=== PATIENT | male | born 1980 | race Caucasian/White ===

== ENCOUNTER 2020-02-04 11:34 | Emergency (ER) | payer MEDICARE, MEDICAID ==
[~2020-02-04] VITALS: Ht 190.5 cm; Wt 81.8 kg
[~2020-02-04 11:34] MED LIST: ARIP5SOL2 PO; GABA600T PO; HYDR50CA9 PO; LACO200T2 PO; RISP3TAB35 PO; SIMV-46 PO; TOPI25CA PO; VENL75CA55 PO
[2020-02-04] MEDS ORDERED: LORazepam 2 MG TABLET PO ONE (12:30)
[2020-02-04 12:55] LABS: BASOPHILS % (AUTO) 1.1 % (0.0-2.0); EOSINOPHILS % (AUTO) 2.4 % (1.0-6.0); HEMATOCRIT 42.8 % (41-53); HEMOGLOBIN 14.2 g/dL (13.5-17.5); LYMPHOCYTES # (AUTO) 1.1 K/uL (1.0-4.8); LYMPHOCYTES % (AUTO) 14.7 % (22.0-44.0); MEAN CORPUSCULAR HEMOGLOBIN 31.5 pg (26.0-34.0); MEAN CORPUSCULAR HGB CONC 33.3 G/dL (31.0-37.0); MEAN CORPUSCULAR VOLUME 95 fL (80-100); MONOCYTES # (AUTO) 0.6 K/uL (0.1-1.0); MONOCYTES % (AUTO) 7.9 % (2.0-9.0); NEUTROPHILS # (AUTO) 5.5 K/uL (1.8-7.7); NEUTROPHILS % (AUTO) 73.9 % (40.0-70.0); PLATELET COUNT (AUTO) 288 K/uL (150-450); RED BLOOD CELL COUNT(AUTO) 4.53 MIL/uL (4.50-5.90); RED CELL DISTRIBUTION WIDTH 12.7 % (11.5-14.5)
[2020-02-04 12:56] LABS: ANION GAP 10 mmol/L (8-16); CALCIUM, TOTAL 8.7 mg/dL (8.8-10.5); CARBON DIOXIDE 24 mmol/L (22-29); CHLORIDE 106 mmol/L (98-107); CREATININE 0.63 mg/dL (0.60-1.30); GLOMERULAR FILTR. RATE CALC > 60 mL/min (>60); GLUCOSE,RANDOM 125 mg/dL (70-110); POTASSIUM 3.4 mmol/L (3.5-5.1); SODIUM SERUM 140 mmol/L (136-145); UREA NITROGEN, BLOOD 8 mg/dL (7-18)
[2020-02-04 13:08] LABS: ALANINE AMINOTRANSFERASE 62 U/L (12-78); ALBUMIN 3.1 g/dL (3.4-5.0); ALKALINE PHOSPHATASE 85 U/L (46-116); ASPARTATE AMINOTRANSFERASE 45 U/L (15-37); BILIRUBIN,TOTAL 0.4 mg/dL (0.1-1.0); TOTAL PROTEIN, SERUM 6.6 g/dL (6.4-8.2)
[2020-02-04 13:45] VITALS: BP 132/80
== END 2020-02-04 13:50 | disposition home or self-care (01) ==
LOC: EMS 11:37
DX: G40.909 Epilepsy, unspecified, not intractable, without status epilepticus (principal); F41.9 Anxiety disorder, unspecified; F20.9 Schizophrenia, unspecified; F17.210 Nicotine dependence, cigarettes, uncomplicated; F15.90 Other stimulant use, unspecified, uncomplicated; Z79.899 Other long term (current) drug therapy
CPT/HCPCS: 36415; 80053; 85025; 99283; G0480

== ENCOUNTER 2020-03-15 13:17 | Inpatient (IN) | payer MEDICARE, MEDICAID ==
[~2020-03-15] VITALS: Ht 188 cm; Wt 79.5 kg
[2020-03-15] MEDS ORDERED: TRAZ-257 PO (18:17)
[2020-03-15] MEDS ORDERED: BENZ1TAB10 PO (18:17)
[2020-03-15] MEDS ORDERED: GABA-1181 PO (18:17)
[2020-03-15] MEDS ORDERED: QUET200T PO (18:17)
[2020-03-15] MEDS ORDERED: RISP1TAB48 PO (18:17)
[2020-03-15] MEDS ORDERED: INFLUENZA VIRUS VACCINE QVS 2020-21 (6MO+)/PF 60 MCG/0.5 ML SYRINGE IM ONE (20:45)
[2020-03-15 21:01] VITALS: BP 114/70
[2020-03-15] MEDS ORDERED: DOCUSATE SODIUM 100 MG CAPSULE PO PRN (23:00)
[2020-03-15] MEDS ORDERED: ONDANSETRON HCL 4 MG TABLET PO PRN (23:00)
[2020-03-15] MEDS ORDERED: PETROLATUM,WHITE 28 GM JELLY TP PRN (23:00)
[2020-03-15] MEDS ORDERED: ALBUTEROL SULFATE HFA 90 MCG/PUFF 8 GM INHALER IH PRN (23:00)
[2020-03-15] MEDS ORDERED: LOPERAMIDE HCL 2 MG CAPSULE PO PRN (23:00)
[2020-03-15] MEDS ORDERED: OMEPRAZOLE 20 MG CAPSULE PO PRN (23:00)
[2020-03-15] MEDS ORDERED: MAGNESIUM HYDROXIDE SUSPENSION 30 ML UDCUP PO PRN (23:00)
[2020-03-15] MEDS ORDERED: ACETAMINOPHEN 325 MG TABLET PO PRN (23:00)
[2020-03-15] MEDS ORDERED: IBUPROFEN 600 MG TABLET PO PRN (23:00)
[2020-03-15] MEDS ORDERED: MAG HYDROX/AL HYDROX/SIMETH ES 30 ML SUSPENSION UDCUP PO PRN (23:00)
[2020-03-15] MEDS ORDERED: CloNIDine HCL 0.1 MG TABLET PO PRN (23:00)
[2020-03-15] MEDS ORDERED: BACITRACIN 28 GM OINTMENT TP PRN (23:00)
[2020-03-16] MEDS ORDERED: DiphenhydrAMINE HCL 50 MG/ML VIAL IM ONE (04:45)
[2020-03-16] MEDS ORDERED: LORazepam 2 MG/ML VIAL IM ONE (04:45)
[2020-03-16] MEDS ORDERED: HALOPERIDOL LACTATE 5 MG/ML VIAL IM ONE (04:45)
[2020-03-16 16:20] VITALS: BP 111/73
[2020-03-16] MEDS: RisperiDONE 4 MG TABLET PO SCH (16:42)
[2020-03-16] MEDS: LORazepam 2 MG TABLET PO PRN (16:42)
[2020-03-16] MEDS: HALOPERIDOL 5 MG TABLET PO PRN (16:42)
[2020-03-16] MEDS: QUEtiapine FUMARATE 300 MG TABLET PO SCH (20:31)
[2020-03-17 08:36] VITALS: BP 127/90
[2020-03-17] MEDS: GABAPENTIN 300 MG CAPSULE PO SCH ×2 (09:04→17:00)
[2020-03-17] MEDS: RisperiDONE 4 MG TABLET PO SCH ×2 (09:04→17:00)
[2020-03-17] MEDS: QUEtiapine FUMARATE 300 MG TABLET PO SCH (20:33)
[2020-03-17] MEDS: LORazepam 2 MG TABLET PO PRN (20:33)
[2020-03-17] MEDS: HALOPERIDOL 5 MG TABLET PO PRN (20:33)
[2020-03-18 08:42] VITALS: BP 140/90
[2020-03-18 08:54] LABS: BASOPHILS % (AUTO) 1.1 % (0.0-2.0); EOSINOPHILS % (AUTO) 3.4 % (1.0-6.0); HEMATOCRIT 41.8 % (41-53); HEMOGLOBIN 14.1 g/dL (13.5-17.5); LYMPHOCYTES # (AUTO) 1.7 K/uL (1.0-4.8); LYMPHOCYTES % (AUTO) 25.8 % (22.0-44.0); MEAN CORPUSCULAR HEMOGLOBIN 30.8 pg (26.0-34.0); MEAN CORPUSCULAR HGB CONC 33.8 G/dL (31.0-37.0); MEAN CORPUSCULAR VOLUME 91 fL (80-100); MONOCYTES # (AUTO) 0.5 K/uL (0.1-1.0); MONOCYTES % (AUTO) 7.6 % (2.0-9.0); NEUTROPHILS # (AUTO) 4.1 K/uL (1.8-7.7); NEUTROPHILS % (AUTO) 62.1 % (40.0-70.0); PLATELET COUNT (AUTO) 596 K/uL (150-450); RED BLOOD CELL COUNT(AUTO) 4.57 MIL/uL (4.50-5.90); RED CELL DISTRIBUTION WIDTH 12.8 % (11.5-14.5)
[2020-03-18] MEDS: LORazepam 2 MG TABLET PO PRN ×2 (09:03→16:44)
[2020-03-18] MEDS: GABAPENTIN 300 MG CAPSULE PO SCH ×2 (09:03→16:43)
[2020-03-18] MEDS: RisperiDONE 4 MG TABLET PO SCH ×2 (09:03→16:44)
[2020-03-18 09:15] LABS: HEMOGLOBIN A1C 5.7 % (3.8-5.6)
[2020-03-18 09:45] LABS: ALANINE AMINOTRANSFERASE 52 U/L (12-78); ALBUMIN 3.1 g/dL (3.4-5.0); ALKALINE PHOSPHATASE 81 U/L (46-116); ANION GAP 6 mmol/L (8-16); ASPARTATE AMINOTRANSFERASE 31 U/L (15-37); BILIRUBIN,TOTAL 0.2 mg/dL (0.1-1.0); CALCIUM, TOTAL 9.2 mg/dL (8.8-10.5); CARBON DIOXIDE 27 mmol/L (22-29); CHLORIDE 105 mmol/L (98-107); CHOL/HDL RATIO 3.7 (4.2-7.3); CHOLESTEROL 169 mg/dL (131-200); CREATININE 0.65 mg/dL (0.60-1.30); FREE T4 (FREE THYROXINE) 0.97 ng/dL (0.76-1.46); GLOMERULAR FILTR. RATE CALC > 60 mL/min (>60); GLUCOSE,RANDOM 71 mg/dL (70-110); HDL CHOLESTEROL 46 mg/dL (40-60); LDL CHOL (CALC.) 89 mg/dL (0-130); POTASSIUM 4.1 mmol/L (3.5-5.1); SODIUM SERUM 138 mmol/L (136-145); THYROID STIMULATING HORMONE 1.24 uIU/mL (0.36-3.74); TOTAL PROTEIN, SERUM 7.2 g/dL (6.4-8.2); TRIGLYCERIDES 169 mg/dL (15-150); UREA NITROGEN, BLOOD 14 mg/dL (7-18)
[2020-03-18 16:15] VITALS: BP 134/91
[2020-03-18] MEDS: QUEtiapine FUMARATE 300 MG TABLET PO SCH (20:40)
[2020-03-19 06:16] VITALS: BP 102/63
[2020-03-19 08:37] VITALS: BP 105/62
[2020-03-19] MEDS: LORazepam 2 MG TABLET PO PRN ×2 (09:49→16:27)
[2020-03-19] MEDS: RisperiDONE 4 MG TABLET PO SCH ×2 (09:49→16:27)
[2020-03-19] MEDS: GABAPENTIN 300 MG CAPSULE PO SCH ×2 (09:49→16:27)
[2020-03-19 16:28] VITALS: BP 108/70
[2020-03-19] MEDS: QUEtiapine FUMARATE 300 MG TABLET PO SCH (20:23)
[2020-03-20 05:58] VITALS: BP 137/83
[2020-03-20 08:14] VITALS: BP 117/85
[2020-03-20] MEDS: RisperiDONE 4 MG TABLET PO SCH ×2 (08:41→16:11)
[2020-03-20] MEDS: GABAPENTIN 300 MG CAPSULE PO SCH ×2 (08:41→16:11)
[2020-03-20 16:04] VITALS: BP 140/77
[2020-03-20] MEDS: LORazepam 2 MG TABLET PO PRN (16:11)
[2020-03-20] MEDS ORDERED: LORazepam 2 MG/ML VIAL IM ONE (18:15)
[2020-03-20] MEDS ORDERED: DiphenhydrAMINE HCL 50 MG/ML VIAL IM ONE (18:15)
[2020-03-20] MEDS ORDERED: HALOPERIDOL LACTATE 5 MG/ML VIAL IM ONE (18:15)
[2020-03-20] MEDS: QUEtiapine FUMARATE 300 MG TABLET PO SCH (20:27)
[2020-03-20] MEDS: ZOLPIDEM TARTRATE 10 MG TABLET PO PRN (20:27)
[2020-03-21 04:08] VITALS: BP 108/68
[2020-03-21 08:03] VITALS: BP 111/72
[2020-03-21] MEDS: RisperiDONE 4 MG TABLET PO SCH ×2 (08:55→16:48)
[2020-03-21] MEDS: GABAPENTIN 300 MG CAPSULE PO SCH ×2 (08:55→16:48)
[2020-03-21] MEDS: LORazepam 2 MG TABLET PO PRN ×2 (08:56→21:11)
[2020-03-21 16:34] VITALS: BP 107/71
[2020-03-21] MEDS: QUEtiapine FUMARATE 300 MG TABLET PO SCH (21:11)
[2020-03-22 06:25] VITALS: BP 134/90
[2020-03-22] MEDS: GABAPENTIN 300 MG CAPSULE PO SCH ×2 (08:01→16:37)
[2020-03-22] MEDS: LORazepam 2 MG TABLET PO PRN ×2 (08:01→16:37)
[2020-03-22] MEDS: RisperiDONE 4 MG TABLET PO SCH ×2 (08:01→16:37)
[2020-03-22 08:08] VITALS: BP 120/69
[2020-03-22 16:12] VITALS: BP 115/74
[2020-03-22] MEDS: THIAMINE 100 MG TABLET PO SCH (16:37)
[2020-03-22] MEDS: BENZOCAINE/MENTHOL LOZENGE PO PRN (17:15)
[2020-03-22] MEDS: ZOLPIDEM TARTRATE 10 MG TABLET PO PRN (20:21)
[2020-03-22] MEDS: QUEtiapine FUMARATE 300 MG TABLET PO SCH (20:21)
[2020-03-23 04:28] VITALS: BP 128/73
[2020-03-23 07:49] LABS: COVID AG,FIA SOURCE NASOPHARYNGEAL
[2020-03-23 08:03] VITALS: BP 117/71
[2020-03-23] MEDS: THIAMINE 100 MG TABLET PO SCH ×2 (09:06→16:16)
[2020-03-23] MEDS: RisperiDONE 4 MG TABLET PO SCH ×2 (09:06→16:16)
[2020-03-23] MEDS: FOLIC ACID 1 MG TABLET PO SCH (09:06)
[2020-03-23] MEDS: NICOTINE 21 MG/24 HOUR PATCH TD SCH (09:06)
[2020-03-23] MEDS: GABAPENTIN 300 MG CAPSULE PO SCH ×2 (09:06→16:16)
[2020-03-23] MEDS: MULTIVITAMINS WITH MINERALS, THERAPEUTIC TABLET PO SCH (09:07)
[2020-03-23 16:02] VITALS: BP 133/86
[2020-03-23] MEDS: BENZOCAINE/MENTHOL LOZENGE PO PRN (16:04)
[2020-03-23] MEDS: HALOPERIDOL 5 MG TABLET PO PRN (17:45)
[2020-03-23] MEDS: LORazepam 2 MG TABLET PO PRN (17:45)
[2020-03-23] MEDS: QUEtiapine FUMARATE 300 MG TABLET PO SCH (20:37)
[2020-03-24 02:48] VITALS: BP 131/92
[2020-03-24] MEDS: FOLIC ACID 1 MG TABLET PO SCH (08:02)
[2020-03-24] MEDS: MULTIVITAMINS WITH MINERALS, THERAPEUTIC TABLET PO SCH (08:02)
[2020-03-24] MEDS: GABAPENTIN 300 MG CAPSULE PO SCH ×2 (08:02→16:21)
[2020-03-24] MEDS: RisperiDONE 4 MG TABLET PO SCH ×2 (08:02→16:21)
[2020-03-24] MEDS: THIAMINE 100 MG TABLET PO SCH ×2 (08:02→16:21)
[2020-03-24] MEDS: LORazepam 2 MG TABLET PO PRN (08:02)
[2020-03-24] MEDS: NICOTINE 21 MG/24 HOUR PATCH TD SCH (08:02)
[2020-03-24] MEDS: OMEGA-3/DHA/EPA/FISH OIL 1,000 MG CAPSULE PO SCH (08:02)
[2020-03-24 08:27] VITALS: BP 127/84
[2020-03-24 16:17] VITALS: BP 125/80
[2020-03-24] MEDS: QUEtiapine FUMARATE 300 MG TABLET PO SCH (20:37)
[2020-03-25 02:40] VITALS: BP 129/85
[2020-03-25] MEDS: OMEGA-3/DHA/EPA/FISH OIL 1,000 MG CAPSULE PO SCH (08:01)
[2020-03-25] MEDS: GABAPENTIN 300 MG CAPSULE PO SCH ×2 (08:01→17:05)
[2020-03-25] MEDS: NICOTINE 21 MG/24 HOUR PATCH TD SCH (08:02)
[2020-03-25] MEDS: MULTIVITAMINS WITH MINERALS, THERAPEUTIC TABLET PO SCH (08:02)
[2020-03-25] MEDS: FOLIC ACID 1 MG TABLET PO SCH (08:02)
[2020-03-25] MEDS: RisperiDONE 4 MG TABLET PO SCH ×2 (08:02→17:05)
[2020-03-25] MEDS: LORazepam 2 MG TABLET PO PRN ×2 (08:02→17:05)
[2020-03-25] MEDS: THIAMINE 100 MG TABLET PO SCH ×2 (08:02→17:05)
[2020-03-25 08:26] VITALS: BP 127/86
[2020-03-25 16:24] VITALS: BP 140/93
[2020-03-25] MEDS: HALOPERIDOL 5 MG TABLET PO PRN (17:05)
[2020-03-25] MEDS: ZOLPIDEM TARTRATE 10 MG TABLET PO PRN (20:19)
[2020-03-25] MEDS: QUEtiapine FUMARATE 300 MG TABLET PO SCH (20:19)
[2020-03-26 05:57] VITALS: BP 136/90
[2020-03-26 07:29] LABS: ALANINE AMINOTRANSFERASE 45 U/L (12-78); ALBUMIN 3.4 g/dL (3.4-5.0); ALKALINE PHOSPHATASE 103 U/L (46-116); ANION GAP 10 mmol/L (8-16); ASPARTATE AMINOTRANSFERASE 21 U/L (15-37); BILIRUBIN,TOTAL 0.5 mg/dL (0.1-1.0); CALCIUM, TOTAL 9.1 mg/dL (8.8-10.5); CARBON DIOXIDE 26 mmol/L (22-29); CHLORIDE 105 mmol/L (98-107); CREATININE 0.72 mg/dL (0.60-1.30); GLOMERULAR FILTR. RATE CALC > 60 mL/min (>60); GLUCOSE,RANDOM 151 mg/dL (70-110); POTASSIUM 4.3 mmol/L (3.5-5.1); SODIUM SERUM 141 mmol/L (136-145); TOTAL PROTEIN, SERUM 7.3 g/dL (6.4-8.2); UREA NITROGEN, BLOOD 14 mg/dL (7-18)
[2020-03-26 08:35] VITALS: BP 120/88
[2020-03-26] MEDS: MULTIVITAMINS WITH MINERALS, THERAPEUTIC TABLET PO SCH (08:44)
[2020-03-26] MEDS: OMEGA-3/DHA/EPA/FISH OIL 1,000 MG CAPSULE PO SCH (08:44)
[2020-03-26] MEDS: FOLIC ACID 1 MG TABLET PO SCH (08:44)
[2020-03-26] MEDS: GABAPENTIN 300 MG CAPSULE PO SCH ×2 (08:44→16:32)
[2020-03-26] MEDS: THIAMINE 100 MG TABLET PO SCH ×2 (08:44→16:32)
[2020-03-26] MEDS: RisperiDONE 4 MG TABLET PO SCH ×2 (09:26→16:32)
[2020-03-26] MEDS: NICOTINE POLACRILEX 2 MG LOZENGE PO PRN ×2 (09:40→14:31)
[2020-03-26 16:07] VITALS: BP 125/87
[2020-03-26] MEDS: QUEtiapine FUMARATE 300 MG TABLET PO SCH (20:01)
[2020-03-27 04:52] VITALS: BP 122/76
[2020-03-27] MEDS: NICOTINE POLACRILEX 2 MG LOZENGE PO PRN ×3 (07:00→17:16)
[2020-03-27] MEDS: GABAPENTIN 300 MG CAPSULE PO SCH ×2 (08:22→17:16)
[2020-03-27] MEDS: MULTIVITAMINS WITH MINERALS, THERAPEUTIC TABLET PO SCH (08:23)
[2020-03-27] MEDS: FOLIC ACID 1 MG TABLET PO SCH (08:23)
[2020-03-27] MEDS: RisperiDONE 4 MG TABLET PO SCH ×2 (08:23→17:16)
[2020-03-27] MEDS: OMEGA-3/DHA/EPA/FISH OIL 1,000 MG CAPSULE PO SCH (08:23)
[2020-03-27] MEDS: THIAMINE 100 MG TABLET PO SCH ×2 (08:23→17:16)
[2020-03-27 08:29] VITALS: BP 117/77
[2020-03-27 16:25] VITALS: BP 108/66
[2020-03-27] MEDS: QUEtiapine FUMARATE 300 MG TABLET PO SCH (20:52)
[2020-03-28] MEDS: NICOTINE POLACRILEX 2 MG LOZENGE PO PRN ×3 (05:07→16:34)
[2020-03-28 06:10] VITALS: BP 114/74
[2020-03-28] MEDS: MULTIVITAMINS WITH MINERALS, THERAPEUTIC TABLET PO SCH (08:43)
[2020-03-28] MEDS: GABAPENTIN 300 MG CAPSULE PO SCH ×2 (08:44→16:33)
[2020-03-28] MEDS: OMEGA-3/DHA/EPA/FISH OIL 1,000 MG CAPSULE PO SCH (08:44)
[2020-03-28] MEDS: THIAMINE 100 MG TABLET PO SCH ×2 (08:44→16:34)
[2020-03-28] MEDS: FOLIC ACID 1 MG TABLET PO SCH (08:44)
[2020-03-28] MEDS: RisperiDONE 4 MG TABLET PO SCH ×2 (08:44→16:34)
[2020-03-28 09:04] VITALS: BP 112/71
[2020-03-28] MEDS: HALOPERIDOL 5 MG TABLET PO PRN (16:34)
[2020-03-28] MEDS: LORazepam 2 MG TABLET PO PRN (16:34)
[2020-03-28 16:59] VITALS: BP 114/74
[2020-03-28] MEDS: LACOSAMIDE 100 MG TABLET PO SCH (17:12)
[2020-03-28] MEDS: QUEtiapine FUMARATE 300 MG TABLET PO SCH (20:40)
[2020-03-28] MEDS: ZOLPIDEM TARTRATE 10 MG TABLET PO PRN (20:41)
[2020-03-29 02:31] VITALS: BP 116/82
[2020-03-29 08:10] VITALS: BP 122/81
[2020-03-29] MEDS: OMEGA-3/DHA/EPA/FISH OIL 1,000 MG CAPSULE PO SCH (09:12)
[2020-03-29] MEDS: THIAMINE 100 MG TABLET PO SCH ×2 (09:12→17:13)
[2020-03-29] MEDS: GABAPENTIN 300 MG CAPSULE PO SCH ×2 (09:12→17:13)
[2020-03-29] MEDS: LACOSAMIDE 100 MG TABLET PO SCH ×2 (09:12→17:10)
[2020-03-29] MEDS: RisperiDONE 4 MG TABLET PO SCH ×2 (09:12→17:13)
[2020-03-29] MEDS: MULTIVITAMINS WITH MINERALS, THERAPEUTIC TABLET PO SCH (09:12)
[2020-03-29] MEDS: FOLIC ACID 1 MG TABLET PO SCH (09:12)
[2020-03-29] MEDS: LORazepam 2 MG TABLET PO PRN (09:13)
[2020-03-29 16:05] VITALS: BP 126/86
[2020-03-29] MEDS: ZOLPIDEM TARTRATE 10 MG TABLET PO PRN (21:37)
[2020-03-29] MEDS: QUEtiapine FUMARATE 300 MG TABLET PO SCH (21:37)
[2020-03-30 05:32] VITALS: BP 127/85
[2020-03-30] MEDS: THIAMINE 100 MG TABLET PO SCH ×2 (08:47→16:52)
[2020-03-30] MEDS: OMEGA-3/DHA/EPA/FISH OIL 1,000 MG CAPSULE PO SCH (08:47)
[2020-03-30] MEDS: MULTIVITAMINS WITH MINERALS, THERAPEUTIC TABLET PO SCH (08:47)
[2020-03-30] MEDS: RisperiDONE 4 MG TABLET PO SCH ×2 (08:47→16:39)
[2020-03-30] MEDS: FOLIC ACID 1 MG TABLET PO SCH (08:47)
[2020-03-30] MEDS: GABAPENTIN 300 MG CAPSULE PO SCH ×2 (08:47→16:39)
[2020-03-30] MEDS: LORazepam 2 MG TABLET PO PRN (08:47)
[2020-03-30] MEDS: LACOSAMIDE 100 MG TABLET PO SCH ×2 (08:47→16:39)
[2020-03-30 16:12] VITALS: BP 110/76
[2020-03-30] MEDS: NICOTINE POLACRILEX 2 MG LOZENGE PO PRN (16:39)
[2020-03-30 17:00] LABS: GLUCOMETER DEV NAME(LOC) BV2X.; GLUCOSE,POINT OF CARE 131 MG/DL (70-110)
[2020-03-30] MEDS: QUEtiapine FUMARATE 300 MG TABLET PO SCH (21:01)
[2020-03-31 05:55] VITALS: BP 129/76
[2020-03-31 08:31] VITALS: BP 126/81
[2020-03-31] MEDS: THIAMINE 100 MG TABLET PO SCH ×2 (09:07→16:06)
[2020-03-31] MEDS: FOLIC ACID 1 MG TABLET PO SCH (09:07)
[2020-03-31] MEDS: GABAPENTIN 300 MG CAPSULE PO SCH ×2 (09:07→16:06)
[2020-03-31] MEDS: OMEGA-3/DHA/EPA/FISH OIL 1,000 MG CAPSULE PO SCH (09:07)
[2020-03-31] MEDS: MULTIVITAMINS WITH MINERALS, THERAPEUTIC TABLET PO SCH (09:07)
[2020-03-31] MEDS: LACOSAMIDE 100 MG TABLET PO SCH ×2 (09:21→16:06)
[2020-03-31] MEDS: RisperiDONE 4 MG TABLET PO SCH ×2 (10:12→16:06)
[2020-03-31] MEDS: NICOTINE POLACRILEX 2 MG LOZENGE PO PRN (15:30)
[2020-03-31 16:14] VITALS: BP 124/80
[2020-03-31] MEDS: QUEtiapine FUMARATE 300 MG TABLET PO SCH (20:52)
[2020-04-01 01:15] VITALS: BP 118/75
[2020-04-01] MEDS: NICOTINE POLACRILEX 2 MG LOZENGE PO PRN (06:21)
[2020-04-01 08:05] VITALS: BP 125/83
[2020-04-01] MEDS: MULTIVITAMINS WITH MINERALS, THERAPEUTIC TABLET PO SCH (08:27)
[2020-04-01] MEDS: FOLIC ACID 1 MG TABLET PO SCH (08:27)
[2020-04-01] MEDS: LACOSAMIDE 100 MG TABLET PO SCH (08:27)
[2020-04-01] MEDS: GABAPENTIN 300 MG CAPSULE PO SCH (08:27)
[2020-04-01] MEDS: OMEGA-3/DHA/EPA/FISH OIL 1,000 MG CAPSULE PO SCH (08:27)
[2020-04-01] MEDS: THIAMINE 100 MG TABLET PO SCH (08:28)
[2020-04-01] MEDS: LORazepam 2 MG TABLET PO PRN (08:33)
[2020-04-01] MEDS: RisperiDONE 4 MG TABLET PO SCH (09:23)
[2020-04-01] MEDS ORDERED: RISP4TAB73 PO (11:24)
[2020-04-01] MEDS ORDERED: QUET300T2 PO (11:25)
== END 2020-04-01 13:25 | disposition home or self-care (01) | DRG 885 ==
LOC: B3A 20:27 → B2X 03-30 13:00
PROVIDERS: ADMIT Psychiatry & Neurology Psychiatry; ATTEND Psychiatry & Neurology Psychiatry
DX: F25.0 Schizoaffective disorder, bipolar type (principal); F22 Delusional disorders; E03.9 Hypothyroidism, unspecified; K21.9 Gastro-esophageal reflux disease without esophagitis; F15.10 Other stimulant abuse, uncomplicated; K59.00 Constipation, unspecified; G47.00 Insomnia, unspecified; F12.90 Cannabis use, unspecified, uncomplicated; Z20.822 Contact with and (suspected) exposure to COVID-19; Z71.51 Drug abuse counseling and surveillance of drug abuser; Z88.6 Allergy status to analgesic agent
CPT/HCPCS: 80053; 80061; 82962; 83036; 84439; 84443; 85025; J1200; J1630; J2060; Q9967

== ENCOUNTER 2020-04-17 08:58 | Emergency (ER) | payer MEDICARE, MEDICAID ==
[~2020-04-17] VITALS: Ht 188 cm; Wt 81.8 kg
[~2020-04-17 08:58] MED LIST changes: -ARIP5SOL2 PO; +GABA-1181 PO; -GABA600T PO; -HYDR50CA9 PO; +QUET300T2 PO; -RISP3TAB35 PO; +RISP4TAB73 PO; -SIMV-46 PO; -TOPI25CA PO; -VENL75CA55 PO
[2020-04-17 10:12] LABS: AMPHET/METH SCREEN,URINE NEGATIVE (NEGATIVE); BARBITURATE SCREEN, URINE NEGATIVE (NEGATIVE); BENZODIAZEPINES SCREEN,URINE NEGATIVE (NEGATIVE); CANNABINOID SCREEN,URINE POSITIVE (NEGATIVE); COCAINE SCREEN,URINE NEGATIVE (NEGATIVE); METHADONE SCREEN, URINE NEGATIVE (NEGATIVE); OPIATE SCREEN,URINE NEGATIVE (NEGATIVE)
[2020-04-17 10:13] LABS: PHENCYCLIDINE SCREEN,URINE NEGATIVE (NEGATIVE)
[2020-04-17 10:43] LABS: BASOPHILS % (AUTO) 0.8 % (0.0-2.0); EOSINOPHILS % (AUTO) 6.8 % (1.0-6.0); HEMATOCRIT 38.1 % (41-53); LYMPHOCYTES # (AUTO) 1.9 K/uL (1.0-4.8); LYMPHOCYTES % (AUTO) 22.8 % (22.0-44.0); MEAN CORPUSCULAR HEMOGLOBIN 29.9 pg (26.0-34.0); MEAN CORPUSCULAR VOLUME 88 fL (80-100); MONOCYTES # (AUTO) 0.6 K/uL (0.1-1.0); MONOCYTES % (AUTO) 7.4 % (2.0-9.0); NEUTROPHILS # (AUTO) 5.1 K/uL (1.8-7.7); NEUTROPHILS % (AUTO) 62.2 % (40.0-70.0); PLATELET COUNT (AUTO) 354 K/uL (150-450); RED BLOOD CELL COUNT(AUTO) 4.33 MIL/uL (4.50-5.90); RED CELL DISTRIBUTION WIDTH 13.1 % (11.5-14.5)
[2020-04-17 11:30] VITALS: BP 131/71
[2020-04-17 11:34] LABS: CALCIUM, TOTAL 6.8 mg/dL (8.8-10.5); CARBON DIOXIDE 27 mmol/L (22-29); CREATININE 0.64 mg/dL (0.60-1.30); GLOMERULAR FILTR. RATE CALC > 60 mL/min (>60); GLUCOSE,RANDOM 159 mg/dL (70-110); UREA NITROGEN, BLOOD 12 mg/dL (7-18)
[2020-04-17 11:35] LABS: ALBUMIN 3.2 g/dL (3.4-5.0)
[2020-04-17 11:36] LABS: SODIUM SERUM 141 mmol/L (136-145)
[2020-04-17 11:37] LABS: ANION GAP 11 mmol/L (8-16); CHLORIDE 103 mmol/L (98-107); POTASSIUM 3.6 mmol/L (3.5-5.1)
[2020-04-17 11:39] LABS: ALANINE AMINOTRANSFERASE 24 U/L (12-78); ALKALINE PHOSPHATASE 92 U/L (46-116); ASPARTATE AMINOTRANSFERASE 17 U/L (15-37); BILIRUBIN,TOTAL 0.5 mg/dL (0.1-1.0); TOTAL PROTEIN, SERUM 7.2 g/dL (6.4-8.2)
== END 2020-04-17 11:31 | disposition home or self-care (01) ==
LOC: EMS 09:20
DX: F25.9 Schizoaffective disorder, unspecified (principal); F17.210 Nicotine dependence, cigarettes, uncomplicated; F15.90 Other stimulant use, unspecified, uncomplicated; Z88.6 Allergy status to analgesic agent
CPT/HCPCS: 36415; 80053; 80307; 85025; 99285; G0480